=== PATIENT | male | born 1975 | race Caucasian/White ===

== ENCOUNTER 2019-03-04 08:41 | Observation (INO) ==
[2019-03-04] MEDS ORDERED: Acetaminophen IV 1,000 MG/100 ML INFUS..BTL ONE (08:54)
[2019-03-04] MEDS ORDERED: CeFAZolin Syr 3,000MG/30 ML 3,000 MG/30 ML SYRINGE IVPB ONE (08:56)
[2019-03-04] MEDS ORDERED: Ringers Solution, Lactated 1,000 ML IVC SCH ×2 (09:00→09:30)
--- NOTE | 2019-03-04 09:01 | Anesthesia Evaluation PreOp ---
Date of Encounter: 03/04/19 Time of Encounter: 08:59 - Past History Planned Operation: Robotic lap Umbilical hernia repair poss mesh/poss open Cardiac History: HTN Pulmonary History: Former smoker, ZEN Dx [employer] History: Denies Any Significant HX Other Medical History: Renal (CKD stage IV due to polycystic kidney disease), Other (BMI 47) Anesthesia History: No Prior Anesthetic Complications, Past Anesthesia (chelsi hernia, L knee tendon repair) Alcohol Use: none Drug use: none Medications and Allergies Allopurinol [Zyloprim 300 MG] 300 mg PO DAILY 03/04/19 [History] Amlodipine Besylate/Benazepril [Lotrel 10-40 mg Capsule] 1 each PO DAILY 03/04/19 [History] Cholecalciferol (Vitamin D3) [Vitamin D] 1,000 unit PO QAM 03/04/19 [History] Ferrous Sulfate 325 mg PO QAM 03/04/19 [History] Hydralazine HCl 50 mg PO BID 03/04/19 [History] Labetalol HCl 200 mg PO BID 03/04/19 [History] Lovastatin [Mevacor] 20 mg PO DAILY 03/04/19 [History] Multivitamin [Daily Multiple Vitamin] 1 tab PO DAILY 03/04/19 [History] Allergy/AdvReac Type Severity Reaction Status Date / Time oxycodone [Oxycodone] Allergy Itching Verified 03/04/19 09:18 sertraline Allergy TREMORS Verified 03/04/19 09:18 ibuprofen AdvReac CONTRAINDICATED Verified 03/04/19 09:18 D/T KIDNEYS - Meds/Allergy Pre-op Review Medications Reviewed: Yes Allergies Reviewed: Yes Beta Blockers on Current Med List: Yes If Beta Blockers taken, Date/Time (Last Dose taken): labetolol 730am today Anesthesia Results - Labs Laboratory Tests 06/17/18 01/23/19 02/24/19 09:59 08:07 14:13 WBC 7.9 Hgb 11.0 L Hct 33.7 L Plt Count 230 Sodium 143 Potassium 3.9 Chloride 110 H Carbon Dioxide 23 BUN 29 H Creatinine Glucose 109 H Hemoglobin A1c 5.6 02/24/19 14:13 WBC Hgb Hct Plt Count Sodium Potassium Chloride Carbon Dioxide BUN Creatinine 2.78 H Glucose Hemoglobin A1c - Imaging EKG: report reviewed ([facility] 09/2018) Additional studies: Impression: Perfusion imaging was probably negative for ischemia or infarct. (SDS-1) Mild basal inferior defect likely secondary to diaphragmatic attenuation with no diagnostic wall motion abnormality. Pharmacologic ECG was non diagnostic for ischemia. Patient had no chest pain with stress. No arrhythmias noted with stress. Gated EF 63%. The LV is not dilated. There is no evidence of TID. Low risk stress findings Clinical correlation is advised Anesthesia Exam O2 Sat Height 1.75 m Weight 145.603 kg O2 Sat by Pulse Oximetry 97 Vital Signs Temp Pulse Resp BP Pulse Ox 97.6 F 61 18 115/74 97 03/04/19 08:57 03/04/19 08:57 03/04/19 08:57 03/04/19 08:57 03/04/19 08:57 Weight: 145lbs NPO (# of Hours): >8 Pain Scale: 0 Pain Scale Used: Numeric (1 - 10) - HEENT Pupil (Motor): Pupils equal, EOMI Mallampati: III Teeth: Edentulous (upper) Oral Opening: Greater than 3 - [employer] SENATOR LOC: Oriented [employer] SENATOR Motor: Normal RUE, Normal LUE, Normal RLE, Normal LLE, Normal Face [employer] SENATOR Sensory: Normal: RUE, LUE, RLE, LLE, Face - Cardiac Rhythm: Regular - Pulmonary Breath Sounds: bilateral Clear Respiratory Effort: Symmetrical Anesthesia Assess/Plan ASA Score: 3 Level of consciousness: Cooperative
[2019-03-04] MEDS ORDERED: *HR* Meperidine 25 MG/ML SYRINGE IVP PRN (09:20)
[2019-03-04] MEDS ORDERED: *HR* FentaNYL (PF) 100 MCG/2 ML VIAL IVP PRN (09:20)
[2019-03-04] MEDS ORDERED: *HR* Promethazine 25 MG/ML VIAL IVP PRN (09:20)
[2019-03-04] MEDS ORDERED: Ondansetron 4 MG/2 ML VIAL IVP ONE (09:20)
--- NOTE | 2019-03-04 09:40 | History & Physical Report ---
Date of Encounter: 03/04/19 Time of Encounter: 09:39 24 Hour HP Update - Instructions Instructions: If the History and Physical is less than 30 days old and was completed prior to A.M. admission and or procedure and has NOT been updated on calendar day of procedure please complete this update prior to performing procedure. - Update Patient reports changes in Medical Condition: No Changes in examination, assessment, or condition: No Changes in Medication: No Preop tests/diagnostics Reviewed: Yes Surgery Remains Indicated: Yes Consent for Planned Operative Procedure(s) Verified: Yes - Pre-Operative Checklist Preoperative Checklist Indicated: Yes Prophylactic Antibiotic Ordered: Yes Home Medications Include Beta Ervin: No
[2019-03-04] MEDS ORDERED: *HR* Rocuronium Bromide 50 MG/5 ML VIAL ONE (10:19)
[2019-03-04] MEDS ORDERED: *HR* FentaNYL (PF) 100 MCG/2 ML VIAL ONE ×2 (10:19→12:17)
[2019-03-04] MEDS ORDERED: *HR* Midazolam HCl 2 MG/2 ML VIAL ONE (10:19)
[2019-03-04] MEDS ORDERED: Dexamethasone 4 MG/ML VIAL ONE (10:19)
[2019-03-04] MEDS ORDERED: Lidocaine -MPF 2% 2 ML VIAL ONE (10:19)
[2019-03-04] MEDS ORDERED: *HR* Succinylcholine 200 MG/10 ML VIAL IVP ONE (10:19)
[2019-03-04] MEDS ORDERED: Ondansetron 4 MG/2 ML VIAL ONE (10:19)
[2019-03-04] MEDS ORDERED: Neostigmine Methylsulfate 3 MG/3 ML SYRINGE ONE (10:20)
[2019-03-04] MEDS ORDERED: *HR* Propofol 200 MG/20 ML VIAL IVP ONE (10:20)
[2019-03-04] MEDS ORDERED: Lidocaine -MPF 4% 5 ML AMPUL ONE (10:43)
[2019-03-04] MEDS ORDERED: EPHEDrine 50 MG/ML VIAL ONE (11:34)
[2019-03-04] MEDS ORDERED: *HR* PHENYLEPHRINE 1,000 MCG/10 ML SYRINGE IVP ONE (11:35)
[2019-03-04 12:33] LABS: VBG Base Excess -5 mEq/L; VBG Chloride 111 mEq/L (98-107); VBG Glucose 126 mg/dl (65-95); VBG HCO3 22 mEq/L (21-27); VBG Ionized Calcium 1.22 mmol/L (1.15-1.35); VBG Oxygen Saturation 75 %; VBG PCO2 44 mmHg (41-51); VBG PH 7.29 pH Units (7.32-7.42); VBG PO2 44 mmHg (25-50); VBG Total CO2 23 mEq/L
[2019-03-04 13:19] LABS: Hematocrit 29.9 % (37.5-50.1); Hemoglobin 9.7 g/dL (12.9-16.9); Mean Corpuscular HGB Conc 32.4 g/dL (31.6-35.5); Mean Corpuscular Hemoglobin 28.8 pg (28.0-33.3); Mean Corpuscular Volume 88.7 fL (83.0-100.0); Mean Platelet Volume 9.6 fL (9.4-12.4); Platelet Count 196 K/mcL (140-400); Red Blood Count 3.37 M/mcL (4.19-5.50)
--- NOTE | 2019-03-04 13:51 | Anesthesia Evaluation Post Op ---
Date of Encounter: 03/04/19 Time of Encounter: 13:45 - Vital Signs Vital Signs: Vital Signs/O2 Sat, Most Current Temp Pulse Resp BP Pulse Ox 97.5 F L 58 20 111/70 92 03/04/19 13:02 03/04/19 13:37 03/04/19 13:37 03/04/19 13:37 03/04/19 13:37 - Lungs Lungs: Clear Ascult./Percussion - Airway Airway: Non-obstructed - Cardiovascular Regular Rate - Mental Status Mental Status: Alert & Oriented, Answers Appropriately - Pain Pain Scale used: Numeric (1 - 10) (tolerable) - Nausea Vomiting Nausea Vomiting: Not Present - Hydration Hydration: NPO Notes: 03/04/19 13:45 pt had an uneventful induction of general anesthesia, Shortly after Dr Sever inserted trochars pt had a precipitous drop in ETCO2 to 15 and oxygen sats to the low 80's, there were no kinks in the ETT, lung sounds were clear bilaterally and there was no evidence of bronchospasm, BP remained stable. Dark brownish red liquid was coming out of the trocar sites as well. Pt recovered his sat and ETCO2 for the remained stable for the rest of the case, he will admitted for further observation and treatment - Discharge PostOp Status: Transfer Patient to floor
[2019-03-04] MEDS ORDERED: Ondansetron 4 MG/2 ML VIAL IVP PRN (14:05)
[2019-03-04] MEDS ORDERED: 0.9 % Sodium Chloride 1,000 ML IVC SCH (14:05)
--- NOTE | 2019-03-04 14:14 | Urology - Consult Note ---
Date of Encounter: 03/04/19 Time of Encounter: 14:12 - Assessment and Plan (1) Autosomal dominant polycystic kidney disease Current Visit: Yes Status: Acute Assessment and plan: Patient with known history of autosomal dominant polycystic kidney disease. Patient's serum creatinine has been stable. No indication at this time for nephrectomy or further treatment. (2) Renal injury Current Visit: Yes Status: Acute Assessment and plan: At this time the patient had 2 trochars into his renal cysts. As recommended in the operating room the patient had a drain placed into one of these trochars. This has has been left to closed suction. We will plan on evaluating this drain tomorrow. If the output remains elevated we will plan on sending fluid for creatinine. We will continue to follow along closely. Qualifiers: Encounter type: initial encounter Laterality: left Qualified Code(s): S37.002A - Unspecified injury of left kidney, initial encounter Urology CN:YUNG Consult date: 03/04/19 Reason for consult Urology: Other (renal injury) Requesting physician: Rigoberto Mcneil History of present illness: Jorge is a 44-year-old male who was undergoing a robotic laparoscopic umbilical hernia repair. During port placement the primary surgeon realized he had placed 2 lateral trochars into the patient's enlarged renal cysts. I was called into the patient's room by Dr. Mcneil for evaluation. Patient had 2 trochars draining slightly dark bloody fluid. No obvious urine was seen draining. Patient had known history of autosomal dominant polycystic kidney disease. He is followed by nephrology at our institution. At this point the patient is not on dialysis but has been recently told that he will likely be on dialysis within 1-2 years. Past Med Surg Social Fam HX - Past Medical History Medical history: hyperlipidemia, hypertension, other Additional medical history: POLYCYSTIC KIDNEY DISEASE. SLEEP AP W/CPAP. QUIT SMOKING 2005 (STARTED @27 YRS OF AGE) Psychiatric history: no psych history - Past Surgical History Surgical History: herniorrhaphy Additional surgical history: LEFT KNEE TENDON REPAIR 12/10/14. RODNEY HERNIA REPAIR 1976. "C'SCOPE" 03/2013. 03/04/19 ROBOTIC UMB HERNIA REPAIR @[facility] W/DR MCNEIL - Social History Smoking Status: Former smoker Smokeless Tobacco Status: No Alcohol use: none Drug use: none Medications and Allergies Allopurinol [Zyloprim 300 MG] 300 mg PO DAILY 03/04/19 [History] Amlodipine Besylate/Benazepril [Lotrel 10-40 mg Capsule] 1 each PO DAILY [History] Cholecalciferol (Vitamin D3) [Vitamin D] 1,000 unit PO QAM 03/04/19 [History] Ferrous Sulfate 325 mg PO QAM 03/04/19 [History] Hydralazine HCl 50 mg PO BID 03/04/19 [History] Labetalol HCl 200 mg PO BID 03/04/19 [History] Lovastatin [Mevacor] 20 mg PO DAILY 03/04/19 [History] Multivitamin [Daily Multiple Vitamin] 1 tab PO DAILY 03/04/19 [History] Allergy/AdvReac Type Severity Reaction Status Date / Time oxycodone [Oxycodone] Allergy Itching Verified 03/04/19 09:18 sertraline Allergy TREMORS Verified 03/04/19 09:18 ibuprofen AdvReac CONTRAINDICATED Verified 03/04/19 09:18 D/T KIDNEYS Review of Systems ROS unobtainable: due to endotracheal tube Exam Initial Vital Signs Temp Pulse Resp BP Pulse Ox 97.6 F 61 18 115/74 97 03/04/19 08:57 03/04/19 08:57 03/04/19 08:57 03/04/19 08:57 03/04/19 08:57 Patient was examined in recovery room General/Neuological: alert and oriented x 3 Eyes: normal pupils, non-icteric Neck: no lymphadenopathy noted, supple to touch Cardiovascular: RRR, no murmurs Respiratory: normal respiratory effort, clear bilaterally ABD: soft, nontender, incisions intact with left lateral drain Back: no pain on percussion bilaterally : normal phallus, normal scrotum, testicles and epididymides normal, urethral meatus normal. Skin: no rashes noted Musculoskeletal: normal gait, FROMx4 Urology Results - Labs 03/04/19 13:05 Abnormal lab results RBC 3.37 M/mcL (4.19-5.50) L 03/04/19 13:05 Hgb 9.7 g/dL (12.9-16.9) L 03/04/19 13:05 Hct 29.9 % (37.5-50.1) L 03/04/19 13:05 VBG pH 7.29 pH Units (7.32-7.42) L 03/04/19 12:30 VBG Hematocrit 25.0 % (37.5-50.1) L 03/04/19 12:30 Venous Chloride 111 mEq/L (98-107) H 03/04/19 12:30 Whole Bld Glucose 126 mg/dl (65-95) H 03/04/19 12:30 All other labs normal. - Imaging CT scan - abdomen: image reviewed CT scan - pelvis: image reviewed Consult Discharge Plan - Plan Referrals: Fariba Kaur MD [Primary Care Provider] -
[2019-03-04] MEDS: *HR* OxyCODONE Immed Rel 5 MG TABLET PO PRN ×2 (15:40→21:52)
[2019-03-04 17:01] LABS: Hematocrit 30.5 % (37.5-50.1); Mean Corpuscular HGB Conc 32.8 g/dL (31.6-35.5); Mean Corpuscular Hemoglobin 28.9 pg (28.0-33.3); Mean Corpuscular Volume 88.2 fL (83.0-100.0); Mean Platelet Volume 9.9 fL (9.4-12.4); Platelet Count 183 K/mcL (140-400); Red Blood Count 3.46 M/mcL (4.19-5.50); Red Cell Distribution Width 13.2 % (11.5-14.5)
[2019-03-05] MEDS: *HR* OxyCODONE Immed Rel 5 MG TABLET PO PRN (04:21)
[2019-03-05 07:11] VITALS: BP 110/69
--- NOTE | 2019-03-05 09:15 | Urology Progress Note ---
Date of Encounter: 03/05/19 Time of Encounter: 09:14 - Assessment and Plan (1) Autosomal dominant polycystic kidney disease Current Visit: Yes Status: Acute (2) Renal injury Current Visit: Yes Status: Acute Assessment and plan: Okay to remove drain today. Patient will have follow-up scheduled with me on Saturday. Expectation that hematuria will improve and resolve. Qualifiers: Encounter type: initial encounter Laterality: left Qualified Code(s): S37.002A - Unspecified injury of left kidney, initial encounter Progress Note Narrative: patient seen. patient in some pain this am. Patient has been having some blood in his urine. Minimal output of his drain for the past 6 hours. Objective Initial Vital Signs Temp Pulse Resp BP Pulse Ox 97.6 F 61 18 115/74 97 03/04/19 08:57 03/04/19 08:57 03/04/19 08:57 03/04/19 08:57 03/04/19 08:57 - General physical appearance Present: well developed, well nourished - Abdomen Present: soft, tender - Labs 03/04/19 16:24 Consult Discharge Plan - Plan Referrals: Fariba Kaur MD [Primary Care Provider] -
[2019-03-05] MEDS ORDERED: Acetaminophen IV 1,000 MG/100 ML INFUS..BTL IVPB ONE (09:49)
--- NOTE | 2019-03-05 10:11 | Discharge Summary ---
Orders not resulted at time of discharge: Pending orders 03/04/19 12:17 Surgical Pathology [PTH] Routine Date of Encounter: 03/05/19 Time of Encounter: 10:24 - Discharge Diagnosis (1) S/P hernia repair Priority: Primary Status: Acute (2) Umbilical hernia Priority: Primary Status: Acute Comments: s/p hernia repair Qualifiers: Obstruction and gangrene presence: without obstruction or gangrene Qualified Code(s): K42.9 - Umbilical hernia without obstruction or gangrene (3) Autosomal dominant polycystic kidney disease Priority: Secondary Status: Chronic (4) Renal injury Priority: Primary Status: Acute Qualifiers: Encounter type: initial encounter Laterality: left Qualified Code(s): S37.002A - Unspecified injury of left kidney, initial encounter General Surgery Exam Initial Vital Signs Temp Pulse Resp BP Pulse Ox 97.6 F 61 18 115/74 97 03/04/19 08:57 03/04/19 08:57 03/04/19 08:57 03/04/19 08:57 03/04/19 08:57 Vital Signs Temp Pulse Resp BP Pulse Ox 03/05/19 07:11 98.3 F 81 16 110/69 92 03/05/19 03:48 98.0 F 94 16 119/69 98 03/04/19 23:03 98.2 F 100 18 120/76 95 03/04/19 18:20 98.0 F 59 16 117/59 95 03/04/19 17:50 98.0 F 55 16 131/75 94 03/04/19 16:50 98.1 F 64 16 125/79 96 03/04/19 15:58 97.6 F 53 17 131/75 95 03/04/19 15:50 98.0 F 81 16 135/73 94 03/04/19 15:20 97.9 F 74 16 125/78 91 03/04/19 14:50 98.0 F 60 16 117/68 92 03/04/19 14:35 98.1 F 61 16 114/73 92 03/04/19 14:20 97.8 F 62 16 113/70 92 03/04/19 14:05 97.9 F 100 16 114/59 93 03/04/19 13:37 58 20 111/70 92 03/04/19 13:12 65 14 115/72 94 03/04/19 13:02 97.5 F L 64 20 113/66 94 03/04/19 12:52 77 20 108/74 92 03/04/19 12:42 56 12 110/59 96 03/04/19 12:32 98.1 F 63 16 104/62 96 Intake and Output 03/04/19 03/05/19 03/05/19 23:59 07:59 15:59 Intake Total 2240 / 2240 Output Total 360 / 360 1120 / 1120 Balance 1880 / 1880 -1120 / -1120 Intake: Oral 2240 / 2240 Output: Urine 200 / 200 1100 / 1100 Wound Drainage 160 / 160 20 / 20 left flank 160 / 160 20 / 20 Other: Meal water pitcher Percent of Meal Consumed 100% # Voids 2 Weight 145.6 kg Patient Weight 03/05/19 23:59 Weight 145.6 kg VITAL SIGNS: Reviewed. See [facility] GENERAL: In no apparent distress. HEENT: Normocephalic, atraumatic, pupils are equal and reactive, extraocular motions intact, oropharynx is pink and moist, there is no neck adenopathy or JVD noted. CHEST/RESPIRATORY: The thorax is free from signs of trauma. Lung sounds: clear to auscultation, normal respiratory effort CARDIAC: Regular rate and rhythm. Normal S1 and S2, without murmurs, gallops, or rubs. VASCULAR: No Edema. 2+ peripheral pulses. ABDOMEN: obese, soft, expected postoperative tenderness INCISION: Surgical incision is clean, dry, and intact. There are no signs of cellulitis or infection noted. Periumbilical ecchymosis noted WOUNDS/DRAINS: removed per urology MUSCULOSKELETAL: Good range of motion of all major joints. Extremities without clubbing, cyanosis or edema. NEUROLOGIC EXAM: Alert and oriented x 3. Speech normal. Follows commands. PSYCHIATRIC: Mood normal. SKIN: No rash or lesions. - Hospital Course Hospital course: Mr. Gonzalez is a 44 year old male who presented on 03/04/2019 for an elective umbilical hernia repair with Dr. Mcneil. Per urology no, he was noted to have 2 trochars in his renal cysts and is recommended in the operating room the drain was placed in one of the trochars. Urology reevaluated the patient on 03/05/2019 and removed the drain. He is ambulating avoiding without difficulty, tolerating a diet without nausea or vomiting, vital signs are stable, and he is afebrile. We will begin discharge planning to home with a follow-up with surgery in approximately 2 weeks. He will follow-up with urology on Saturday. - Time Spent with Patient Total time spent providing and/or coordinating discharge services: - Discharge Medications Prescriptions: New Ondansetron ODT [Zofran ODT] 4 mg SL Q4HR PRN #15 tab.rapdis PRN Reason: Postsurgical nausea OxyCODONE/APAP 5/325 [Percocet 5/325 MG] 1 each PO Q6HR PRN 7 Days #28 tablet PRN Reason: Pain Docusate Sodium [Colace] 100 mg PO BID PRN #30 capsule PRN Reason: Contstipation Continue Allopurinol [Zyloprim 300 MG] 300 mg PO DAILY Multivitamin [Daily Multiple Vitamin] 1 tab PO DAILY Lovastatin [Mevacor] 20 mg PO DAILY Ferrous Sulfate 325 mg PO QAM Amlodipine Besylate/Benazepril [Lotrel 10-40 mg Capsule] 1 each PO DAILY Cholecalciferol (Vitamin D3) [Vitamin D3] 1,000 unit PO QAM Hydralazine HCl 50 mg PO BID #0 Labetalol HCl 200 mg PO BID #0 Home Medications: Allopurinol [Zyloprim 300 MG] 300 mg PO DAILY 03/04/19 [History] Amlodipine Besylate/Benazepril [Lotrel 10-40 mg Capsule] 1 each PO DAILY 03/04/19 [History] Cholecalciferol (Vitamin D3) [Vitamin D3] 1,000 unit PO QAM 03/04/19 [History] Ferrous Sulfate 325 mg PO QAM 03/04/19 [History] Lovastatin [Mevacor] 20 mg PO DAILY 03/04/19 [History] Multivitamin [Daily Multiple Vitamin] 1 tab PO DAILY 03/04/19 [History] Docusate Sodium [Colace] 100 mg PO BID PRN #30 capsule 03/05/19 [Rx] Hydralazine HCl 50 mg PO BID #0 03/05/19 [Rx] Labetalol HCl 200 mg PO BID #0 03/05/19 [Rx] Ondansetron ODT [Zofran ODT] 4 mg SL Q4HR PRN #15 tab.rapdis 03/05/19 [Rx] OxyCODONE/APAP 5/325 [Percocet 5/325 MG] 1 each PO Q6HR PRN 7 Days #28 tablet 03/05/19 [Rx] Allergies/Adverse Reactions: Allergy/AdvReac Type Severity Reaction Status Date / Time sertraline Allergy TREMORS Verified 03/04/19 09:18 ibuprofen AdvReac CONTRAINDICATED Verified 03/04/19 09:18 D/T KIDNEYS Date of admission: 03/04/19 13:09 Primary care physician: Fariba Kaur MD Discharging clinician: Ирина Gan Anticipated date of discharge: 03/05/19 Labs on day of discharge: Labs from last 24 hours 03/04/19 03/04/19 03/04/19 16:24 13:05 13:05 WBC 9.9 10.5 RBC 3.46 L 3.37 L Hgb 10.0 L 9.7 L Hct 30.5 L 29.9 L MCV 88.2 88.7 MCH 28.9 28.8 MCHC 32.8 32.4 RDW 13.2 13.0 Plt Count 183 196 MPV 9.9 9.6 VBG pH VBG pCO2 VBG pO2 VBG HCO3 VBG Total CO2 VBG O2 Saturation VBG Base Excess VBG Hematocrit Venous Sodium Venous Potassium Venous Chloride Whole Bld Glucose Venous Ioniz Calcium Troponin I < 0.03 03/04/19 12:30 WBC RBC Hgb Hct MCV MCH MCHC RDW Plt Count MPV VBG pH 7.29 L VBG pCO2 44 VBG pO2 44 VBG HCO3 22 VBG Total CO2 23 VBG O2 Saturation 75 VBG Base Excess -5 VBG Hematocrit 25.0 L Venous Sodium 144 Venous Potassium 4.4 Venous Chloride 111 H Whole Bld Glucose 126 H Venous Ioniz Calcium 1.22 Troponin I - Impressions ITS Impressions Chest X-Ray 03/04/19 12:38 IMPRESSION: Mild bilateral scattered airspace opacity, favored to be atelectasis, less likely pneumonia. D/ / Casey Smith MD / Casey Smith MD Interpreting Provider: Casey Smith MD - Patient Status Disposition: Home, Self-Care Condition: Good Functional capacity at discharge: independent ambulation Overall status at discharge: patient is progressing back to baseline - Discharge Instructions Instructions: Laparoscopic Herniorrhaphy (DC), Autosomal Dominant Polycystic Kidney Disease (GEN) Follow Up With: Fariba Kaur MD [Primary Care Provider] - Ирина Gan CNP [Advanced Practice Nurse] - 03/17/19 4:00 pm Carlos Manuel Kathleen DO [Partnered Physician] - 03/12/19 11:15 am Luis Pelaez MD [Partnered Physician] - 03/10/19 (Saturday03/10/2019) Additional Instructions: General Surgical Discharge Instructions 1. No pushing, pulling, or lifting greater than 15 lbs for 4 weeks. 2. You may shower beginning today, but no tub baths, soaking, or swimming for 2 weeks. 3. You may resume driving when you are off narcotics and are safe to react in a car. 4. Take 650 mg of acetaminophen every 6 hours needed for discomfort. If this does not relieve your discomfort, you may take one of the as needed Percocet. Do not take more than 4 g of acetaminophen in 24-hours. I Do not take more narcotics then directed and do not share your narcotics with any other person. Do not drink alcohol while on narcotics. 5. Take stool softeners (Colace) or a water based laxative (Miralax) while taking narcotics. You may hold for loose stools. 6. Report any fevers greater than 100.5F, increase abdominal discomfort, drainage that looks like pus, increased redness or pain at the surgical site, or any vomiting. 7. Report any pain in the calves, shortness of breath, or rapid heartbeat. 8. Follow-up in the office as directed. 9. If you were prescribed antibiotics, do not stop them without talking to your provider. - Diet and Activity Activity: increase activity as tolerated Diet: advance to your usual diet
[2019-03-05] MEDS ORDERED: amLODIPine 5 MG TABLET PO SCH (10:15)
[2019-03-05] MEDS ORDERED: *HR* OxyCODONE Immed Rel 5 MG TABLET PO PRN (10:20)
[2019-03-06] MEDS ORDERED: Lisinopril 20 MG TABLET PO SCH (10:15)
--- NOTE | 2019-03-10 08:22 | Operative Note ---
Date of procedure: 03/04/19 Pre-op diagnosis: Umbilical hernia Post-op diagnosis: same Procedure: Diagnostic laparoscopy with open umbilical hernia repair with mesh in retroperitoneal drain placement Anesthesia: JOYA Surgeon: Rigoberto Mcneil Was there an assistant executive housekeeper present: Yes Risk Specialist: Lisseth Reynoso Estimated blood loss (cc): 100 Specimen: 0 Condition: stable Disposition: floor Procedure in Detail: After informed consent, the patient was taken to the operating room placed in the supine position. After adequate sedation and anesthesia the abdomen was prepped and draped. An incision was made on the left flank. A 12 mm cannula was then inserted under direct visualization towards the abdominal cavity. However I entered a space which was not in the peritoneal cavity. Upon reviewing the CT the patient had extensive polycystic kidney disease. It appeared that entered a cyst of the kidney. This cannula was remained in place. An additional 8 mm cannula was also attempted to be placed it too was within the cyst of the left kidney. At that point and made a decision to perform an open umbilical hernia. Incision was made around the umbilical skin. The hernia sac was opened and a 0 Vic[address]ures used to place a pursestring suture around the fascia. A 12 mm port was placed and a diagnostic laparoscopy was performed. I wanted to ensure that there is no intestinal injury. It appeared the 8 mm and 12 mm cannulas were actually in the retroperitoneum and within the renal cyst. An intraoperative consultation was performed with urology. The urologist recommended drain placement with observation the hospital to ensure that the co llecting system was not injured. Therefore at this point they also recommended repair of the umbilical hernia as the renal cysts were sterile. A 12 mm some attacks mesh was deployed within the abdomen. It was secured to the fascia with interrupted oh Surgilon sutures and U stitch-type fashion. Once completed the fascia was closed over top of the mesh. The skin was closed with 3-0 Vicryl suture and scottie. The 12 mm and 8 mm ports were removed. A 19-Irish Vasquez drain was placed within the cyst capsule and secured to the skin. The patient was taken to recovery in satisfactory condition.
== END 2019-03-05 13:25 | disposition home or self-care (01) ==
LOC: 3BNU 08:41 → SAMDAY 08:41 → 3BNU 14:02
PROVIDERS: ADMIT Surgery; ATTEND Surgery

== ENCOUNTER 2019-10-28 20:20 | Observation (INO) ==
[2019-10-29] MEDS: hydrALAZINE 25 MG TABLET PO SCH ×3 (03:19→20:46)
[2019-10-29] MEDS ORDERED: Naloxone 0.4 MG/ML INJ IVP PRN (04:13)
[2019-10-29 05:46] LABS: Bilirubin,Urine Negative (Negative); Blood,Urine Negative (Negative); Clarity,Urine Clear (Clear); Color,Urine Yellow (Yellow); Glucose,Urine (UA) Normal (Normal); Ketones,Urine Negative (Negative); Leukocyte Esterase,Urine Negative (Negative); Nitrite,Urine Negative (Negative); Protein,Urine Negative (Neg-Trace); Specific Gravity,Urine 1.008 (1.010-1.025); Urobilinogen,Urine Normal (Normal)
[2019-10-29] MEDS: Acetaminophen 325 MG TABLET PO SCH ×3 (05:56→17:01)
[2019-10-29 06:17] LABS: Sodium, Urine 43.2 mEq/L
[2019-10-29 08:52] LABS: Calcium 8.6 mg/dL (8.6-10.3); Potassium 4.8 mEq/L (3.5-5.1)
[2019-10-29] MEDS ORDERED: Tolvaptan 15 MG TABLET PO SCH ×2 (09:00→18:00)
[2019-10-29 09:46] LABS: Basophils % 0.5 %; Eosinophils # 0.3 K/mcL (0.0-0.6); Eosinophils % 3.9 %; Hemoglobin 10.1 g/dL (12.9-16.9); Immature Granulocytes % 0.4 % (0-4); Lymphocytes # 1.7 K/mcL (0.6-4.6); Lymphocytes % 23.5 %; Mean Corpuscular HGB Conc 33.7 g/dL (31.6-35.5); Mean Corpuscular Hemoglobin 29.5 pg (28.0-33.3); Mean Corpuscular Volume 87.7 fL (83.0-100.0); Mean Platelet Volume 9.8 fL (9.4-12.4); Monocytes # 0.4 K/mcL (0.0-1.3); Neutrophils # 4.8 K/mcL (1.6-8.9); Platelet Count 188 K/mcL (140-400); Red Blood Count 3.42 M/mcL (4.19-5.50); Red Cell Distribution Width 13.5 % (11.5-14.5); Segmented Neutrophils % 65.7 %; White Blood Count 7.4 K/mcL (4.3-11.1)
[2019-10-29] MEDS: Lisinopril 20 MG TABLET PO SCH (09:53)
[2019-10-29] MEDS: Cholecalciferol (D-3) 1,000 UNIT (25MCG) TABLET PO SCH (09:53)
[2019-10-29] MEDS: amLODIPine 5 MG TABLET PO SCH (09:54)
[2019-10-30] MEDS: Acetaminophen 325 MG TABLET PO SCH ×4 (00:27→17:21)
[2019-10-30 04:47] LABS: Protein/Creatinine Ratio,Urine 0.25 mg/mg (0.00-0.20)
[2019-10-30 05:39] LABS: Basophils % 0.4 %; Eosinophils # 0.3 K/mcL (0.0-0.6); Hematocrit 31.2 % (37.5-50.1); Hemoglobin 10.2 g/dL (12.9-16.9); Immature Granulocytes % 0.4 % (0-4); Lymphocytes # 1.9 K/mcL (0.6-4.6); Mean Corpuscular HGB Conc 32.7 g/dL (31.6-35.5); Mean Corpuscular Hemoglobin 29.7 pg (28.0-33.3); Mean Corpuscular Volume 90.7 fL (83.0-100.0); Monocytes # 0.4 K/mcL (0.0-1.3); Monocytes % 5.9 %; Neutrophils # 4.8 K/mcL (1.6-8.9); Platelet Count 211 K/mcL (140-400); Red Blood Count 3.44 M/mcL (4.19-5.50); Red Cell Distribution Width 13.3 % (11.5-14.5); Segmented Neutrophils % 64.3 %; White Blood Count 7.4 K/mcL (4.3-11.1)
[2019-10-30 05:51] LABS: Calcium 8.3 mg/dL (8.6-10.3); Potassium 4.7 mEq/L (3.5-5.1)
[2019-10-30] MEDS: hydrALAZINE 25 MG TABLET PO SCH ×2 (07:59→21:26)
[2019-10-30] MEDS: Lisinopril 20 MG TABLET PO SCH (08:00)
[2019-10-30] MEDS: amLODIPine 5 MG TABLET PO SCH (08:00)
[2019-10-30] MEDS: Cholecalciferol (D-3) 1,000 UNIT (25MCG) TABLET PO SCH (08:00)
[2019-10-30] MEDS: TOLVAPTAN 45 MG PO SCH (08:01)
[2019-10-30] MEDS ORDERED: TOLVAPTAN 15 MG PO SCH (18:00)
[2019-10-30] MEDS ORDERED: JYNARQUE PO SCH (18:00)
[2019-10-31] MEDS ORDERED: Acetaminophen IV 1,000 MG/100 ML INFUS..BTL IVPB ONE (00:04)
[2019-10-31] MEDS: Acetaminophen 325 MG TABLET PO SCH (00:54)
[2019-10-31 06:31] LABS: % Iron Saturation 23 % (20-55); Iron 58 mcg/dL (65-175); Transferrin 181 mg/dL (203-362)
[2019-10-31 06:32] LABS: Calcium 8.2 mg/dL (8.6-10.3); Potassium 4.3 mEq/L (3.5-5.1)
[2019-10-31] MEDS: Lisinopril 20 MG TABLET PO SCH (09:56)
[2019-10-31] MEDS: amLODIPine 5 MG TABLET PO SCH (09:57)
[2019-10-31] MEDS: TOLVAPTAN 45 MG PO SCH (09:57)
[2019-10-31] MEDS: hydrALAZINE 25 MG TABLET PO SCH (09:57)
[2019-10-31] MEDS: Cholecalciferol (D-3) 1,000 UNIT (25MCG) TABLET PO SCH (10:02)
[2019-10-31 11:02] VITALS: BP 123/75
== END 2019-10-31 12:16 | disposition home or self-care (01) ==
LOC: 2ANU → SUATTDRO 23:06
PROVIDERS: ADMIT Internal Medicine; ATTEND Internal Medicine

== ENCOUNTER 2021-02-04 23:23 | Inpatient (IN) ==
[2021-02-04 23:44] LABS: Bacteria,Urine Few per hpf (None-Few); Bilirubin,Urine Negative (Negative); Blood,Urine Trace (Negative); Clarity,Urine Clear (Clear); Color,Urine Colorless (Yellow); Glucose,Urine (UA) Normal (Normal); Ketones,Urine Negative (Negative); Leukocyte Esterase,Urine Negative (Negative); Nitrite,Urine Negative (Negative); PH,Urine 6.5 pH Units (5.0-8.0); Protein,Urine 70 mg/dL (Neg-Trace); RBC,Urine 0-3 per hpf (0-3); Specific Gravity,Urine 1.006 (1.010-1.025); Squamous Epithelial Cell,Urine Few per hpf (None-Few); Urobilinogen,Urine Normal (Normal); WBC,Urine 0-3 per hpf (0-3)
[2021-02-04 23:52] LABS: Basophils # 0.1 K/mcL (0.0-0.2); Basophils % 0.4 %; Eosinophils # 0.4 K/mcL (0.0-0.6); Eosinophils % 2.9 %; Hematocrit 25.2 % (37.5-50.1); Hemoglobin 8.1 g/dL (12.9-16.9); Immature Granulocytes % 0.4 % (0-4); Lymphocytes # 0.9 K/mcL (0.6-4.6); Lymphocytes % 6.8 %; Mean Corpuscular HGB Conc 32.1 g/dL (31.6-35.5); Mean Corpuscular Hemoglobin 28.4 pg (28.0-33.3); Mean Corpuscular Volume 88.4 fL (83.0-100.0); Mean Platelet Volume 9.7 fL (9.4-12.4); Monocytes % 7.2 %; Neutrophils # 11.2 K/mcL (1.6-8.9); Platelet Count 259 K/mcL (140-400); Red Blood Count 2.85 M/mcL (4.19-5.50); Red Cell Distribution Width 13.3 % (11.5-14.5); Segmented Neutrophils % 82.3 %; White Blood Count 13.6 K/mcL (4.3-11.1)
[2021-02-05] MEDS ORDERED: *HR* HYDROmorphone (PF) 1 MG/ML SYRINGE IVP ONE ×2 (00:08→00:56)
[2021-02-05] MEDS ORDERED: Ondansetron 4 MG/2 ML VIAL IVP ONE (00:08)
[2021-02-05 00:12] LABS: Alanine Aminotransferase 11 Units/L (7-52); Albumin 3.5 g/dL (3.5-5.7); Albumin/Globulin Ratio 1.1 (1.1-2.2); Alkaline Phosphatase 53 Units/L (34-104); Aspartate Amino Transferase 11 Units/L (13-39); BUN/Creatinine Ratio 8 (6-26); Bilirubin,Total 0.5 mg/dL (0.3-1.0); Blood Urea Nitrogen 34 mg/dL (6-20); Calcium 8.3 mg/dL (8.6-10.3); Carbon Dioxide 18 mEq/L (23-29); Chloride 100 mEq/L (98-107); Globulin 3.1 g/dL (2.4-3.5); Glucose 123 mg/dL (70-105); Osmolality,Calculated 285 (280-300); Potassium 3.4 mEq/L (3.5-5.1); Sodium 133 mEq/L (136-145); Total Protein 6.6 g/dL (6.4-8.9); Troponin I < 0.03 ng/mL (< 0.04); eGFR For African Americans 18 (> 60); eGFR For Non-African Americans 14 (> 60)
[2021-02-05] MEDS ORDERED: cefTRIAXone 1,000 MG in Water for inj. (sterile) 10 ML IVP ONE (01:32)
[2021-02-05] MEDS ORDERED: Naloxone 0.4 MG/ML INJ IVP PRN (02:01)
[2021-02-05] MEDS ORDERED: Tolvaptan 15 MG TABLET PO ONE (02:34)
[2021-02-05] MEDS ORDERED: allopurinoL 300 MG TABLET PO ONE (02:36)
[2021-02-05] MEDS: *HR* HYDROmorphone (PF) 1 MG/ML SYRINGE IVP PRN ×5 (03:07→23:47)
[2021-02-05] MEDS: Multivit/Ca/Min/Fe/FA 1 TAB TABLET PO SCH (08:34)
[2021-02-05] MEDS: Cholecalciferol (D-3) 1,000 UNIT (25MCG) TABLET PO SCH (08:34)
[2021-02-05] MEDS: amLODIPine 5 MG TABLET PO SCH (08:34)
[2021-02-05] MEDS ORDERED: *HR* OxyCODONE/APAP 5/325 TABLET PO PRN (08:38)
[2021-02-05] MEDS: Piperacillin/Tazobactam 3.375 GM in 0.9 % Sodium Chloride Mini Bag 100 ML IVPB SCH (17:08)
[2021-02-05] MEDS ORDERED: *HR* HYDROcodone/Acet 5/325 mg TABLET PO PRN (17:11)
[2021-02-05] MEDS ORDERED: TOLVAPTAN PO SCH (18:00)
[2021-02-05] MEDS ORDERED: hydrALAZINE 25 MG TABLET PO SCH (21:00)
[2021-02-05] MEDS: Ondansetron 4 MG/2 ML VIAL IVP PRN (21:56)
[2021-02-05] MEDS: allopurinoL 300 MG TABLET PO SCH (21:57)
[2021-02-06] MEDS ORDERED: *HR* OxyCODONE Immed Rel 5 MG TABLET PO PRN ×2 (01:12→02:35)
[2021-02-06 04:58] LABS: Basophils % 0.1 %; Eosinophils # 0.1 K/mcL (0.0-0.6); Eosinophils % 0.6 %; Hemoglobin 6.8 g/dL (12.9-16.9); Immature Granulocytes % 0.7 % (0-4); Lymphocytes # 1.1 K/mcL (0.6-4.6); Lymphocytes % 5.9 %; Mean Corpuscular HGB Conc 32.4 g/dL (31.6-35.5); Mean Corpuscular Hemoglobin 28.9 pg (28.0-33.3); Mean Corpuscular Volume 89.4 fL (83.0-100.0); Monocytes # 1.6 K/mcL (0.0-1.3); Monocytes % 8.8 %; Neutrophils # 15.3 K/mcL (1.6-8.9); Platelet Count 267 K/mcL (140-400); Red Blood Count 2.35 M/mcL (4.19-5.50); Red Cell Distribution Width 13.4 % (11.5-14.5); Segmented Neutrophils % 83.9 %; White Blood Count 18.3 K/mcL (4.3-11.1)
[2021-02-06 05:32] LABS: Albumin 3.3 g/dL (3.5-5.7); Albumin/Globulin Ratio 1.1 (1.1-2.2); Bilirubin,Direct 0.2 mg/dL (0.0-0.2); Bilirubin,Indirect 0.4 mg/dL (0.0-1.0); Bilirubin,Total 0.6 mg/dL (0.3-1.0); Calcium 7.8 mg/dL (8.6-10.3); Globulin 2.9 g/dL (2.4-3.5); Total Protein 6.2 g/dL (6.4-8.9)
[2021-02-06] MEDS ORDERED: cefTRIAXone 1,000 MG in 0.9 % Sodium Chloride Mini Bag 100 ML IVPB SCH (06:00)
[2021-02-06] MEDS: Piperacillin/Tazobactam 3.375 GM in 0.9 % Sodium Chloride Mini Bag 100 ML IVPB SCH ×2 (08:11→17:50)
[2021-02-06] MEDS: Magnesium Oxide 400 MG TABLET PO SCH (08:46)
[2021-02-06] MEDS: calcitrioL 0.25 MCG CAPSULE PO SCH (08:46)
[2021-02-06] MEDS: Cholecalciferol (D-3) 1,000 UNIT (25MCG) TABLET PO SCH (08:46)
[2021-02-06] MEDS: Multivit/Ca/Min/Fe/FA 1 TAB TABLET PO SCH (08:46)
[2021-02-06] MEDS ORDERED: TOLVAPTAN PO SCH (09:00)
[2021-02-06] MEDS: amLODIPine 5 MG TABLET PO SCH (10:35)
[2021-02-06] MEDS ORDERED: 0.9 % Sodium Chloride 500 ML ONE (10:43)
[2021-02-06] MEDS ORDERED: 0.9 % Sodium Chloride 250 ML ONE (11:45)
[2021-02-06 11:56] LABS: Influenza A PCR Negative (Negative); Influenza B PCR Negative (Negative); Resp. Syncytial Virus PCR Negative (Negative)
[2021-02-06 11:58] LABS: SARS-CoV-2 by PCR (In House) Negative (Negative)
[2021-02-06] MEDS ORDERED: 0.9 % Sodium Chloride 500 ML IVC ONE (12:15)
[2021-02-06] MEDS: Nicotine 21 MG PATCH.TD24 TD SCH (12:18)
[2021-02-06] MEDS: *HR* HYDROcodone/Acet 7.5/325 mg TABLET PO PRN (12:18)
[2021-02-06 17:31] LABS: Hematocrit 22.6 % (37.5-50.1); Hemoglobin 7.5 g/dL (12.9-16.9)
[2021-02-06] MEDS: *HR* HYDROmorphone (PF) 1 MG/ML SYRINGE IVP PRN ×2 (17:50→22:45)
[2021-02-06] MEDS: allopurinoL 300 MG TABLET PO SCH (20:37)
[2021-02-06 22:33] LABS: Hepatitis B Surface Antibody < 3.10 mIU/mL
[2021-02-06 22:42] LABS: Hepatitis B Surface Antigen Nonreactive (Nonreactive)
[2021-02-06 23:12] LABS: Hepatitis B Core IgM Nonreactive (Nonreactive)
[2021-02-06] MEDS ORDERED: hydrOXYzine pamoate 25 MG CAPSULE PO ONE (23:45)
[2021-02-07 02:45] LABS: Hematocrit 20.1 % (37.5-50.1); Hemoglobin 6.8 g/dL (12.9-16.9); Mean Corpuscular HGB Conc 33.8 g/dL (31.6-35.5); Mean Corpuscular Hemoglobin 29.6 pg (28.0-33.3); Mean Corpuscular Volume 87.4 fL (83.0-100.0); Mean Platelet Volume 9.8 fL (9.4-12.4); Platelet Count 271 K/mcL (140-400); Red Cell Distribution Width 13.6 % (11.5-14.5); White Blood Count 19.2 K/mcL (4.3-11.1)
[2021-02-07] MEDS: *HR* HYDROmorphone (PF) 1 MG/ML SYRINGE IVP PRN ×3 (02:51→22:35)
[2021-02-07 03:11] LABS: % Iron Saturation 21 % (20-55); BUN/Creatinine Ratio 8 (6-26); Blood Urea Nitrogen 63 mg/dL (6-20); Calcium 7.3 mg/dL (8.6-10.3); Carbon Dioxide 16 mEq/L (23-29); Chloride 88 mEq/L (98-107); Glucose 104 mg/dL (70-105); Iron 32 mcg/dL (65-175); Osmolality,Calculated 272 (280-300); Sodium 122 mEq/L (136-145); Transferrin 107 mg/dL (203-362); eGFR For African Americans 9 (> 60); eGFR For Non-African Americans 7 (> 60)
[2021-02-07 03:29] LABS: Ferritin > 1500 ng/mL (20-250)
[2021-02-07 03:32] LABS: Folate 18.2 ng/mL (3.0-16.0)
[2021-02-07] MEDS ORDERED: 0.9 % Sodium Chloride 250 ML ONE (03:52)
[2021-02-07] MEDS: *HR* HYDROcodone/Acet 7.5/325 mg TABLET PO PRN ×2 (05:46→20:18)
[2021-02-07] MEDS: Piperacillin/Tazobactam 3.375 GM in 0.9 % Sodium Chloride Mini Bag 100 ML IVPB SCH ×2 (06:37→17:51)
[2021-02-07] MEDS ORDERED: *HR* Heparin 10,000 UNIT/10 ML VIAL IV PRN ×2 (07:33)
[2021-02-07] MEDS ORDERED: 0.9 % Sodium Chloride 250 ML IVC PRN (07:33)
[2021-02-07] MEDS: calcitrioL 0.25 MCG CAPSULE PO SCH (07:40)
[2021-02-07] MEDS: Multivit/Ca/Min/Fe/FA 1 TAB TABLET PO SCH (07:40)
[2021-02-07] MEDS: amLODIPine 5 MG TABLET PO SCH (07:40)
[2021-02-07] MEDS: Nicotine 21 MG PATCH.TD24 TD SCH (07:40)
[2021-02-07] MEDS: Cholecalciferol (D-3) 1,000 UNIT (25MCG) TABLET PO SCH (07:40)
[2021-02-07] MEDS: Magnesium Oxide 400 MG TABLET PO SCH (07:41)
[2021-02-07] MEDS ORDERED: 0.9 % Sodium Chloride 1,000 ML PRIME SCH (07:45)
[2021-02-07 08:07] LABS: Basophils % 0.1 %; Eosinophils # 0.1 K/mcL (0.0-0.6); Eosinophils % 0.7 %; Hematocrit 21.7 % (37.5-50.1); Hemoglobin 7.2 g/dL (12.9-16.9); Immature Granulocytes % 0.7 % (0-4); Lymphocytes # 0.6 K/mcL (0.6-4.6); Lymphocytes % 3.6 %; Mean Corpuscular HGB Conc 33.2 g/dL (31.6-35.5); Mean Corpuscular Hemoglobin 29.1 pg (28.0-33.3); Mean Corpuscular Volume 87.9 fL (83.0-100.0); Mean Platelet Volume 9.7 fL (9.4-12.4); Monocytes % 5.7 %; Neutrophils # 15.5 K/mcL (1.6-8.9); Platelet Count 275 K/mcL (140-400); Red Blood Count 2.47 M/mcL (4.19-5.50); Red Cell Distribution Width 13.5 % (11.5-14.5); Segmented Neutrophils % 89.2 %; White Blood Count 17.4 K/mcL (4.3-11.1)
[2021-02-07 08:15] LABS: INR 1.6; Prothrombin Time 18.8 Seconds (9.4-12.1)
[2021-02-07] MEDS ORDERED: Heparin 1,000 UNITS/500 mL 500 ML ONE (10:42)
[2021-02-07] MEDS ORDERED: 0.9 % Sodium Chloride 500 ML ONE (11:01)
[2021-02-07] MEDS ORDERED: *HR* FentaNYL (PF) 100 MCG/2 ML VIAL ONE (11:01)
[2021-02-07] MEDS ORDERED: *HR* Midazolam HCl 2 MG/2 ML VIAL ONE (11:01)
[2021-02-07] MEDS ORDERED: *HR* Midazolam HCl 2 MG/2 ML VIAL IVP ONE (11:08)
[2021-02-07] MEDS ORDERED: *HR* FentaNYL (PF) 100 MCG/2 ML VIAL IVP ONE (11:08)
[2021-02-07] MEDS ORDERED: *HR* Heparin 5,000 UNIT/ML VIAL ONE (11:14)
[2021-02-07] MEDS ORDERED: Iron Sucrose Complex 250 MG in 0.9 % Sodium Chloride 250 ML IVPB SCH (17:00)
[2021-02-07] MEDS: allopurinoL 300 MG TABLET PO SCH (20:17)
[2021-02-08 02:06] LABS: Basophils % 0.1 %; Eosinophils # 0.1 K/mcL (0.0-0.6); Eosinophils % 0.5 %; Hematocrit 22.4 % (37.5-50.1); Hemoglobin 7.6 g/dL (12.9-16.9); Immature Granulocytes % 0.7 % (0-4); Lymphocytes # 0.6 K/mcL (0.6-4.6); Lymphocytes % 3.6 %; Mean Corpuscular HGB Conc 33.9 g/dL (31.6-35.5); Mean Corpuscular Hemoglobin 29.1 pg (28.0-33.3); Mean Corpuscular Volume 85.8 fL (83.0-100.0); Mean Platelet Volume 9.4 fL (9.4-12.4); Monocytes # 0.8 K/mcL (0.0-1.3); Monocytes % 5.5 %; Neutrophils # 13.8 K/mcL (1.6-8.9); Platelet Count 308 K/mcL (140-400); Red Blood Count 2.61 M/mcL (4.19-5.50); Red Cell Distribution Width 13.3 % (11.5-14.5); Segmented Neutrophils % 89.6 %; White Blood Count 15.4 K/mcL (4.3-11.1)
[2021-02-08 02:27] LABS: Calcium 7.5 mg/dL (8.6-10.3); Potassium 3.7 mEq/L (3.5-5.1)
[2021-02-08] MEDS: *HR* HYDROmorphone (PF) 1 MG/ML SYRINGE IVP PRN ×3 (03:03→11:39)
[2021-02-08] MEDS: Piperacillin/Tazobactam 3.375 GM in 0.9 % Sodium Chloride Mini Bag 100 ML IVPB SCH ×2 (05:24→18:13)
[2021-02-08] MEDS ORDERED: *HR* Heparin 10,000 UNIT/10 ML VIAL IV PRN (07:26)
[2021-02-08] MEDS ORDERED: 0.9 % Sodium Chloride 250 ML IVC PRN (07:26)
[2021-02-08] MEDS ORDERED: 0.9 % Sodium Chloride 1,000 ML PRIME SCH (07:30)
[2021-02-08] MEDS: *HR* HYDROcodone/Acet 7.5/325 mg TABLET PO PRN (08:00)
[2021-02-08] MEDS: Multivit/Ca/Min/Fe/FA 1 TAB TABLET PO SCH (08:00)
[2021-02-08] MEDS: Magnesium Oxide 400 MG TABLET PO SCH (08:00)
[2021-02-08] MEDS: Nicotine 21 MG PATCH.TD24 TD SCH (08:00)
[2021-02-08] MEDS: Cholecalciferol (D-3) 1,000 UNIT (25MCG) TABLET PO SCH (08:00)
[2021-02-08] MEDS: calcitrioL 0.25 MCG CAPSULE PO SCH (08:00)
[2021-02-08] MEDS: Ondansetron 4 MG/2 ML VIAL IVP PRN (11:39)
[2021-02-08] MEDS ORDERED: *HR* OxyCODONE Immed Rel 5 MG TABLET PO PRN (11:47)
[2021-02-08] MEDS ORDERED: *HR* FentaNYL PATCH 25 MCG PATCH TD SCH (12:00)
[2021-02-08] MEDS: amLODIPine 5 MG TABLET PO SCH (12:10)
[2021-02-08] MEDS: Pantoprazole 40 MG VIAL IVP SCH (15:28)
[2021-02-08] MEDS: allopurinoL 300 MG TABLET PO SCH (20:05)
[2021-02-09 01:34] LABS: Basophils % 0.1 %; Eosinophils # 0.2 K/mcL (0.0-0.6); Eosinophils % 1.3 %; Hematocrit 22.4 % (37.5-50.1); Hemoglobin 7.7 g/dL (12.9-16.9); Immature Granulocytes % 0.9 % (0-4); Lymphocytes % 6.4 %; Mean Corpuscular HGB Conc 34.4 g/dL (31.6-35.5); Mean Corpuscular Hemoglobin 29.7 pg (28.0-33.3); Mean Corpuscular Volume 86.5 fL (83.0-100.0); Mean Platelet Volume 9.2 fL (9.4-12.4); Monocytes # 1.2 K/mcL (0.0-1.3); Monocytes % 7.5 %; Neutrophils # 13.1 K/mcL (1.6-8.9); Platelet Count 322 K/mcL (140-400); Red Blood Count 2.59 M/mcL (4.19-5.50); Red Cell Distribution Width 13.5 % (11.5-14.5); Segmented Neutrophils % 83.8 %; White Blood Count 15.6 K/mcL (4.3-11.1)
[2021-02-09 01:52] LABS: Calcium 8.2 mg/dL (8.6-10.3); Magnesium 2.3 mg/dL (1.6-2.6); Potassium 3.3 mEq/L (3.5-5.1)
[2021-02-09] MEDS: Piperacillin/Tazobactam 3.375 GM in 0.9 % Sodium Chloride Mini Bag 100 ML IVPB SCH ×2 (05:40→17:03)
[2021-02-09] MEDS ORDERED: Potassium Chloride 20 MEQ, Lidocaine 1% 2 ML in 0.9 % Sodium Chloride 250 ML IVPB ONE ×2 (07:28→14:00)
[2021-02-09] MEDS ORDERED: 0.9 % Sodium Chloride 250 ML IVC PRN (07:52)
[2021-02-09] MEDS ORDERED: *HR* Heparin 10,000 UNIT/10 ML VIAL IV PRN (07:52)
[2021-02-09] MEDS: Magnesium Oxide 400 MG TABLET PO SCH (08:58)
[2021-02-09] MEDS: Pantoprazole 40 MG VIAL IVP SCH (08:58)
[2021-02-09] MEDS: Cholecalciferol (D-3) 1,000 UNIT (25MCG) TABLET PO SCH (08:58)
[2021-02-09] MEDS: amLODIPine 5 MG TABLET PO SCH (08:58)
[2021-02-09] MEDS: polyethylene glycoL 3350 17 GM POWD.PACK PO SCH (08:58)
[2021-02-09] MEDS: calcitrioL 0.25 MCG CAPSULE PO SCH (08:58)
[2021-02-09] MEDS: Multivit/Ca/Min/Fe/FA 1 TAB TABLET PO SCH (08:58)
[2021-02-09] MEDS: allopurinoL 300 MG TABLET PO SCH (21:08)
[2021-02-09] MEDS: Ondansetron 4 MG/2 ML VIAL IVP PRN (22:14)
[2021-02-10] MEDS: Nicotine 21 MG PATCH.TD24 TD SCH ×2 (01:48→09:54)
[2021-02-10 03:17] LABS: Basophils % 0.2 %; Eosinophils # 0.2 K/mcL (0.0-0.6); Eosinophils % 1.7 %; Hematocrit 24.3 % (37.5-50.1); Hemoglobin 8.1 g/dL (12.9-16.9); Lymphocytes % 7.9 %; Mean Corpuscular HGB Conc 33.3 g/dL (31.6-35.5); Mean Corpuscular Hemoglobin 29.8 pg (28.0-33.3); Mean Corpuscular Volume 89.3 fL (83.0-100.0); Mean Platelet Volume 8.8 fL (9.4-12.4); Monocytes # 1.1 K/mcL (0.0-1.3); Monocytes % 8.8 %; Platelet Count 337 K/mcL (140-400); Red Blood Count 2.72 M/mcL (4.19-5.50); Red Cell Distribution Width 13.7 % (11.5-14.5); Segmented Neutrophils % 80.4 %; White Blood Count 12.5 K/mcL (4.3-11.1)
[2021-02-10 03:35] LABS: Calcium 8.5 mg/dL (8.6-10.3); Potassium 3.4 mEq/L (3.5-5.1)
[2021-02-10] MEDS: Piperacillin/Tazobactam 3.375 GM in 0.9 % Sodium Chloride Mini Bag 100 ML IVPB SCH (05:56)
[2021-02-10] MEDS: amLODIPine 5 MG TABLET PO SCH (07:44)
[2021-02-10] MEDS: polyethylene glycoL 3350 17 GM POWD.PACK PO SCH (07:44)
[2021-02-10] MEDS: Magnesium Oxide 400 MG TABLET PO SCH (07:44)
[2021-02-10] MEDS: Cholecalciferol (D-3) 1,000 UNIT (25MCG) TABLET PO SCH (07:45)
[2021-02-10] MEDS: calcitrioL 0.25 MCG CAPSULE PO SCH (07:45)
[2021-02-10] MEDS: Multivit/Ca/Min/Fe/FA 1 TAB TABLET PO SCH (07:45)
[2021-02-10] MEDS ORDERED: Ferumoxytol 510 MG in 0.9 % Sodium Chloride 100 ML IVPB ONE (08:00)
[2021-02-10] MEDS: *HR* Labetalol 20 MG/4 ML SYRINGE IVP SCH ×4 (09:53→23:55)
[2021-02-10] MEDS: Pantoprazole 40 MG VIAL IVP SCH (09:54)
[2021-02-10] MEDS: Acetaminophen IV 1,000 MG/100 ML BAG IVPB SCH ×3 (11:03→23:55)
[2021-02-10] MEDS ORDERED: Acetaminophen 325 MG TABLET PO SCH (12:00)
[2021-02-10] MEDS: Potassium Chloride 40 MEQ in D5% in 0.9% NACL 1,000 ML IVC SCH (13:11)
[2021-02-10] MEDS: Metoclopramide 10 MG/10 ML UD.LIQ PO SCH ×3 (13:15→23:54)
[2021-02-10] MEDS: allopurinoL 300 MG TABLET PO SCH (20:07)
[2021-02-11 03:11] LABS: Basophils % 0.3 %; Eosinophils # 0.4 K/mcL (0.0-0.6); Hematocrit 22.5 % (37.5-50.1); Hemoglobin 7.3 g/dL (12.9-16.9); Immature Granulocytes % 1.5 % (0-4); Lymphocytes # 1.6 K/mcL (0.6-4.6); Lymphocytes % 13.2 %; Mean Corpuscular HGB Conc 32.4 g/dL (31.6-35.5); Mean Corpuscular Hemoglobin 29.6 pg (28.0-33.3); Mean Corpuscular Volume 91.1 fL (83.0-100.0); Monocytes # 1.1 K/mcL (0.0-1.3); Monocytes % 9.6 %; Neutrophils # 8.6 K/mcL (1.6-8.9); Nucleated Red Blood Cells 0.2 /100 WBC (0); Platelet Count 326 K/mcL (140-400); Red Blood Count 2.47 M/mcL (4.19-5.50); Red Cell Distribution Width 14.1 % (11.5-14.5); Segmented Neutrophils % 72.4 %; White Blood Count 11.9 K/mcL (4.3-11.1)
[2021-02-11 03:34] LABS: Calcium 8.2 mg/dL (8.6-10.3); Magnesium 2.2 mg/dL (1.6-2.6); Phosphorous 4.7 mg/dL (2.7-4.5); Potassium 3.1 mEq/L (3.5-5.1)
[2021-02-11] MEDS: Metoclopramide 10 MG/10 ML UD.LIQ PO SCH ×2 (05:57→12:54)
[2021-02-11] MEDS: *HR* Labetalol 20 MG/4 ML SYRINGE IVP SCH ×2 (05:57→12:55)
[2021-02-11] MEDS ORDERED: 0.9 % Sodium Chloride 250 ML IVC PRN (07:04)
[2021-02-11] MEDS ORDERED: 0.9 % Sodium Chloride 1,000 ML ONE (07:37)
[2021-02-11] MEDS: Acetaminophen IV 1,000 MG/100 ML BAG IVPB SCH (08:23)
[2021-02-11] MEDS: Cholecalciferol (D-3) 1,000 UNIT (25MCG) TABLET PO SCH (08:24)
[2021-02-11] MEDS: calcitrioL 0.25 MCG CAPSULE PO SCH (08:24)
[2021-02-11] MEDS: Nicotine 21 MG PATCH.TD24 TD SCH (08:24)
[2021-02-11] MEDS: Magnesium Oxide 400 MG TABLET PO SCH (08:24)
[2021-02-11] MEDS: Multivit/Ca/Min/Fe/FA 1 TAB TABLET PO SCH (08:24)
[2021-02-11] MEDS: Pantoprazole 40 MG VIAL IVP SCH (08:24)
[2021-02-11] MEDS: amLODIPine 5 MG TABLET PO SCH (08:25)
[2021-02-11] MEDS: polyethylene glycoL 3350 17 GM POWD.PACK PO SCH (08:25)
[2021-02-11] MEDS: Potassium Chloride 40 MEQ in D5% in 0.9% NACL 1,000 ML IVC SCH (12:48)
[2021-02-11 13:26] VITALS: BP 145/96
== END 2021-02-11 14:58 | disposition home or self-care (01) | DRG 720 ==
LOC: EMEROOARM 23:23 → 2ANU 23:23 → SUATTDRO 02-06 21:40
PROVIDERS: ADMIT Internal Medicine; ATTEND Pharmacist
PROC: IRPERMA (2021-02-07 12:00)